=== PATIENT | female | born 1950 | race Caucasian/White ===

== ENCOUNTER 2020-06-16 10:45 | Inpatient (IN) | payer OTHER, MEDICARE ==
[~2020-06-16] VITALS: Ht 165.1 cm; Wt 58.2 kg
[~2020-06-16 10:45] MED LIST: NO HOME MEDS; ONDA4TAB12 PO
[2020-06-16] MEDS ORDERED: ondansetron/PF 4mg/2ml inj IV ONE (14:00)
[2020-06-16] MEDS ORDERED: normal saline 1000ML IV soln IVB ONE (14:00)
[2020-06-16] MEDS ORDERED: CefTRIAXone 2gm/D5W 50ml BAG 50 ML IV ONE (14:15)
[2020-06-16 14:34] LABS: BASOPHILS # (AUTO) 0.1 X10'3 (0-0.2); BASOPHILS % (AUTO) 0.7 % (0-1); EOSINOPHILS % (AUTO) 0.3 % (0-6); HEMATOCRIT 30.8 % (35.0-45.0); HEMOGLOBIN 10.7 g/dl (12.0-16.0); LYMPHOCYTES # (AUTO) 1.4 X10'3 (1.1-4.8); LYMPHOCYTES % (AUTO) 11.4 % (21-51); MEAN CORPUSCULAR HGB CONC 34.8 g/dL (33.0-36.5); MEAN CORPUSCULAR VOLUME 103.4 FL (78-98); MEAN PLATELET VOLUME 7.3 FL (7.4-10.4); MONOCYTES # (AUTO) 1.1 X10'3 (0-0.9); MONOCYTES % (AUTO) 9.1 % (2-12); NEUTROPHILS # (AUTO) 9.6 X10'3 (1.8-7.7); NEUTROPHILS % (AUTO) 78.5 % (42-75); PLATELET COUNT 179 X10'3 (140-440); RED BLOOD COUNT 2.98 X10'6 (4.20-5.60); RED CELL DISTRIBUTION WIDTH 15.9 % (11.5-14.5); WHITE BLOOD COUNT 12.2 X10'3 (4.5-11.0)
[2020-06-16 14:50] LABS: ALANINE AMINOTRANSFERASE 59 U/L (12-78); ALBUMIN 2.7 G/DL (3.4-5.0); ALKALINE PHOSPHATASE 240 IU/L (46-116); ANION GAP 13 (8-16); BILIRUBIN,TOTAL 23.1 MG/DL (0.1-1.0); BLOOD UREA NITROGEN 12 MG/DL (7-18); ETHANOL < 0.010 GM/DL (0.0-0.010); LIPASE 215 U/L (73-393); SODIUM 128 MMOL/L (135-145); TOTAL CARBON DIOXIDE 29.4 MMOL/L (24-32)
--- NOTE | 2020-06-16 14:55 | NUR ---
BACK FROM CT
[2020-06-16 15:07] LABS: ALBUMIN/GLOBULIN RATIO 0.5 (1.1-1.5); BUN/CREATININE RATIO 16.2 (6.6-38.0); CREATININE 0.74 MG/DL (0.40-0.90); GLUCOSE 112 MG/DL (70-104); TOTAL PROTEIN 8.4 G/DL (6.4-8.2); eGFR 78 ML/MIN
[2020-06-16 15:22] LABS: ASPARTATE AMINO TRANSFERASE 168 U/L (10-37)
[2020-06-16 15:25] LABS: CHLORIDE 86 MMOL/L (99-107)
--- NOTE | 2020-06-16 15:27 | NUR ---
K 2.0. AWARE
[2020-06-16] MEDS ORDERED: potassium Cl 10 mEq/100mL bag IV ONE (15:30)
[2020-06-16] MEDS ORDERED: potassium Cl 40MEQ/1/2NS 520ml 520 ML IV PRN ×3 (15:35→19:05)
[2020-06-16] MEDS: potassium Cl 40MEQ/1/2NS 520ml 520 ML IV PRN (15:55)
--- NOTE | 2020-06-16 15:58 | NUR ---
patient in denial over disease process and current situation. patient denies being jaundice and how long. patient states that lab levels are abnormal due to stress, reports last drink monday and only has one drink, "hot tattie" on monday. patient reports she does not want to transfer at this time for further care and would rather stay here. patient has asked for her care not to be discussed with her . patient is able to verbalize what has been said to her by PA regarding prognosis. understands MELD score is high and chance of mortality is 30% within 90 days, continues to refuse to be transferred to specialist. is away taking care of animals but seems to understand severity of illness when discussed prior with patient. Dynamics appear to be had patient come for care against her will. Per patient has been jaundice for approximately 3-4 weeks.
--- NOTE | 2020-06-16 19:01 | NUR ---
verified iv compatibility of potassium and levaquin with genie gipson
[2020-06-16] MEDS: levoFLOXACIN-Levaquin 250mg/D5 50 ML IV SCH (19:05)
[2020-06-16] MEDS ORDERED: potassium Cl 20 mEq SR tablet PO PRN ×2 (19:05)
[2020-06-16] MEDS: normal saline 1000ml 1,000 ML IV SCH (19:05)
[2020-06-16] MEDS ORDERED: ondansetron/PF 4mg/2ml inj IV PRN (19:05)
[2020-06-16] MEDS ORDERED: magnesium 2GM in 50ml NS 50 ML IV PRN (19:05)
[2020-06-16] MEDS ORDERED: magnesium Cl slow-release 64mg tablet PO PRN (19:05)
--- NOTE | 2020-06-16 19:22 | NUR ---
pt reports feeling "very anxious and uncomfortable" with being here. pt states she is willing to stay but doesnt want to be here. given extra blankets as pt states shes cold. no other requests at this time. md acevedo present currently in room interviewing pt
[2020-06-16] MEDS: K and/or MAG REPLACEMENT MC SCH (20:00)
--- NOTE | 2020-06-16 20:07 | NUR ---
pt requesting room upstairs. updated pt that at this time there is no available room. pt is "in line" to get a room. pt verbalized understanding and states "I just want to go to my room. I hate being down here." is calm and appropriate with staff, "I'm just annoyed and anxious."
[2020-06-16 21:42] LABS: CLARITY,URINE CLOUDY (Clear); COLOR,URINE AMBER (Yellow); GLUCOSE, URINE 100 mg/dl (Neg); KETONES,URINE TRACE mg/dl (Neg); LEUKOCYTE ESTERASE ,URINE LARGE (Neg); NITRITES, URINE POSITIVE (Neg); OCCULT BLOOD,URINE TRACE-INTACT (Neg); PH,URINE 6.5 (4.8-8.0); PROTEIN,URINE 30 mg/dl (Neg)
[2020-06-16 21:43] LABS: URINE AMPHETAMINE SCREEN NEGATIVE (Neg); URINE BARBITUATE SCREEN NEGATIVE (Neg); URINE BENZODIAZEPINES SCREEN NEGATIVE (Neg); URINE CANNABINOID SCREEN NEGATIVE (Neg); URINE COCAINE SCREEN NEGATIVE (Neg); URINE METHADONE SCREEN NEGATIVE (Neg); URINE OPIATE SCREEN NEGATIVE (Neg); URINE PHENCYCLIDINE SCREEN NEGATIVE (Neg)
[2020-06-16 21:46] LABS: UA COLLECTION TYPE CLN CATCH MIDSTREAM
[2020-06-16 21:51] LABS: BACTERIA,URINE 3+ /HPF (Neg); RBC,URINE 0-2 /HPF (0-2); SQUAMOUS EPITHELIAL CELL,UR MODERATE /LPF (FEW); WBC,URINE 50-100 /HPF (0-4)
[2020-06-16 21:52] LABS: WBC CLUMPS,URINE MODERATE /HPF (NEGATIVE)
[2020-06-16 21:53] LABS: TRANSITIONAL EPI CELLS,URINE FEW /HPF
--- NOTE | 2020-06-16 22:55 | NUR ---
Patient in room ED 4. I have received report from SIMON Rawls and had the opportunity to ask questions and assume patient care.
[2020-06-16 23:00] VITALS: BP 133/74
[2020-06-17 02:00] VITALS: BP 110/68
[2020-06-17] MEDS: normal saline 1000ml 1,000 ML IV SCH ×2 (05:05→15:05)
[2020-06-17 06:00] VITALS: BP 108/70
--- NOTE | 2020-06-17 06:00 | NUR ---
Patient in room PCU 3023. I have received report from Haydee and had the opportunity to ask questions and assume patient care.
--- NOTE | 2020-06-17 06:15 | NUR ---
Patient in room PCU 3023. I have received report from Corrina and had the opportunity to ask questions and assume patient care.
--- NOTE | 2020-06-17 06:19 | NUR ---
Problems reprioritized. Patient report given, questions answered & plan of care reviewed with SIMON Quinn.
[2020-06-17 06:21] LABS: BASOPHILS % (AUTO) 0.3 % (0-1); EOSINOPHILS % (AUTO) 0.3 % (0-6); HEMATOCRIT 23.7 % (35.0-45.0); HEMOGLOBIN 8.3 g/dl (12.0-16.0); LYMPHOCYTES % (AUTO) 7.9 % (21-51); MEAN CORPUSCULAR HEMOGLOBIN 36.1 PG (27.0-31.0); MEAN CORPUSCULAR HGB CONC 35.1 g/dL (33.0-36.5); MEAN PLATELET VOLUME 7.3 FL (7.4-10.4); MONOCYTES # (AUTO) 1.2 X10'3 (0-0.9); NEUTROPHILS # (AUTO) 10.1 X10'3 (1.8-7.7); NEUTROPHILS % (AUTO) 81.5 % (42-75); PLATELET COUNT 164 X10'3 (140-440); RED CELL DISTRIBUTION WIDTH 15.6 % (11.5-14.5); WHITE BLOOD COUNT 12.4 X10'3 (4.5-11.0)
[2020-06-17 06:33] LABS: ALBUMIN 1.8 G/DL (3.4-5.0); ANION GAP 11 (8-16); BLOOD UREA NITROGEN 12 MG/DL (7-18); BUN/CREATININE RATIO 17.9 (6.6-38.0); CALCIUM 6.6 MG/DL (8.5-10.1); CHLORIDE 93 MMOL/L (99-107); CREATININE 0.67 MG/DL (0.40-0.90); SODIUM 129 MMOL/L (135-145); eGFR 88 ML/MIN
[2020-06-17 06:36] LABS: GLUCOSE 79 MG/DL (70-104)
[2020-06-17 06:37] LABS: POTASSIUM 2.6 MMOL/L (3.5-5.1)
[2020-06-17 06:38] LABS: MAGNESIUM 0.9 MG/DL (1.5-2.4)
--- NOTE | 2020-06-17 06:45 | NUR ---
promotional table spacer PAGER ID: [phone] MESSAGE: [email or web address] [id number], Isaura Sosa. Mag 0.9 & +K 2.6. Will replace per protocol
[2020-06-17] MEDS: levoFLOXACIN-Levaquin 250mg/D5 50 ML IV SCH (07:26)
[2020-06-17] MEDS: magnesium 4gm in 100ml NS 100 ML IV PRN (07:27)
[2020-06-17] MEDS: K and/or MAG REPLACEMENT MC SCH ×2 (07:28→20:00)
[2020-06-17] MEDS: potassium Cl 40MEQ/1/2NS 520ml 520 ML IV PRN ×2 (10:51→23:42)
[2020-06-17 11:00] VITALS: BP 117/63
[2020-06-17 15:00] VITALS: BP 124/76
[2020-06-17 16:56] LABS: ALANINE AMINOTRANSFERASE 46 U/L (12-78); ALBUMIN 2.1 G/DL (3.4-5.0); ALKALINE PHOSPHATASE 182 IU/L (46-116); BILIRUBIN,TOTAL 19.3 MG/DL (0.1-1.0)
[2020-06-17 17:25] LABS: ASPARTATE AMINO TRANSFERASE 131 U/L (10-37)
[2020-06-17 17:27] LABS: TOTAL PROTEIN 6.3 G/DL (6.4-8.2)
[2020-06-17 17:29] LABS: ALBUMIN/GLOBULIN RATIO 0.5 (1.1-1.5); BILIRUBIN,DIRECT 17.2 MG/DL (0-0.3)
[2020-06-17 18:00] VITALS: BP 128/81
[2020-06-17] MEDS: lactobacillus rhamnosus 10,000 MMU CELLS/CAPSULE PO SCH (20:50)
--- NOTE | 2020-06-17 20:55 | NUR ---
patient has a potassium level of 2.6, replacement is ongoing as she has an IV bag of potassium infusing at the moment.
[2020-06-17 22:00] VITALS: BP_SYST 117; BP_SYST 118; BP_DIAS 80; BP_DIAS 98
[2020-06-17 22:18] LABS: MAGNESIUM 1.9 MG/DL (1.5-2.4)
[2020-06-17 22:19] LABS: POTASSIUM 3.2 MMOL/L (3.5-5.1)
[2020-06-18] MEDS: normal saline 1000ml 1,000 ML IV SCH ×3 (01:05→21:05)
[2020-06-18 02:00] VITALS: BP 101/61
[2020-06-18 06:00] VITALS: BP 123/77
--- NOTE | 2020-06-18 06:10 | NUR ---
report given to and discussed with SIMON Quinn
[2020-06-18 06:20] LABS: BASOPHILS % (AUTO) 0.2 % (0-1); EOSINOPHILS % (AUTO) 0.4 % (0-6); HEMATOCRIT 25.2 % (35.0-45.0); HEMOGLOBIN 8.9 g/dl (12.0-16.0); LYMPHOCYTES % (AUTO) 8.5 % (21-51); MEAN CORPUSCULAR HEMOGLOBIN 36.2 PG (27.0-31.0); MEAN CORPUSCULAR HGB CONC 35.2 g/dL (33.0-36.5); MEAN CORPUSCULAR VOLUME 102.9 FL (78-98); MEAN PLATELET VOLUME 7.3 FL (7.4-10.4); MONOCYTES # (AUTO) 1.2 X10'3 (0-0.9); MONOCYTES % (AUTO) 10.5 % (2-12); NEUTROPHILS # (AUTO) 9.1 X10'3 (1.8-7.7); NEUTROPHILS % (AUTO) 80.4 % (42-75); PLATELET COUNT 196 X10'3 (140-440); RED BLOOD COUNT 2.45 X10'6 (4.20-5.60); RED CELL DISTRIBUTION WIDTH 15.9 % (11.5-14.5); WHITE BLOOD COUNT 11.4 X10'3 (4.5-11.0)
[2020-06-18 06:35] LABS: ANION GAP 11 (8-16); BLOOD UREA NITROGEN 10 MG/DL (7-18); BUN/CREATININE RATIO 15.2 (6.6-38.0); CALCIUM 6.8 MG/DL (8.5-10.1); CHLORIDE 94 MMOL/L (99-107); CREATININE 0.66 MG/DL (0.40-0.90); MAGNESIUM 1.8 MG/DL (1.5-2.4); SODIUM 128 MMOL/L (135-145); TOTAL CARBON DIOXIDE 22.9 MMOL/L (24-32); eGFR 89 ML/MIN
[2020-06-18 06:40] LABS: GLUCOSE 109 MG/DL (70-104); POTASSIUM 3.2 MMOL/L (3.5-5.1)
[2020-06-18] MEDS ORDERED: POTASSIUM BICARB 20meq eff tab 20 MEQ TABLET.EFF PO PRN (07:50)
[2020-06-18] MEDS: levoFLOXACIN-Levaquin 250mg/D5 50 ML IV SCH (08:14)
[2020-06-18] MEDS: K and/or MAG REPLACEMENT MC SCH ×2 (08:15→20:00)
[2020-06-18] MEDS: lactobacillus rhamnosus 10,000 MMU CELLS/CAPSULE PO SCH ×2 (08:15→20:52)
[2020-06-18] MEDS: POTASSIUM BICARB 20meq eff tab 20 MEQ TABLET.EFF PO PRN (08:15)
[2020-06-18 09:57] LABS: ALANINE AMINOTRANSFERASE 46 U/L (12-78); ALKALINE PHOSPHATASE 177 IU/L (46-116); BILIRUBIN,TOTAL 19.9 MG/DL (0.1-1.0)
[2020-06-18 10:29] LABS: ASPARTATE AMINO TRANSFERASE 123 U/L (10-37)
[2020-06-18 10:32] LABS: ALBUMIN/GLOBULIN RATIO 0.5 (1.1-1.5); BILIRUBIN,DIRECT 17.1 MG/DL (0-0.3); TOTAL PROTEIN 6.3 G/DL (6.4-8.2)
[2020-06-18 11:00] VITALS: BP 133/83
[2020-06-18 11:57] LABS: PARTIAL THROMBOPLASTIN TIME 31 SECONDS (22-32)
[2020-06-18 15:00] VITALS: BP 120/76
--- NOTE | 2020-06-18 15:33 | NUR ---
PAGER ID: [phone] MESSAGE: room 3023A, Sheila Barajas, requesting Ativan for MRCP. States she needs anxiety medication.
[2020-06-18] MEDS ORDERED: LORazepam 2 mg/ml vial IV ONE (15:35)
[2020-06-18 18:00] VITALS: BP 144/88
--- NOTE | 2020-06-18 18:21 | NUR ---
report received and discussed with SIMON Quinn.
--- NOTE | 2020-06-18 19:24 | NUR ---
patient is sitting up in bed and eating, she said she is tired and would like to sleep early.
--- NOTE | 2020-06-18 19:44 | NUR ---
initial dietary documentation was a mistake.
[2020-06-18 22:00] VITALS: BP 107/69
[2020-06-18 22:09] LABS: POTASSIUM 3.5 MMOL/L (3.5-5.1)
[2020-06-19 02:00] VITALS: BP 130/79
--- NOTE | 2020-06-19 06:16 | NUR ---
report given to and discussed with SIMON Galvan.
[2020-06-19 06:48] LABS: BASOPHILS % (AUTO) 0.4 % (0-1); EOSINOPHILS # (AUTO) 0.1 X10'3 (0-0.9); EOSINOPHILS % (AUTO) 0.6 % (0-6); HEMATOCRIT 23.6 % (35.0-45.0); HEMOGLOBIN 8.3 g/dl (12.0-16.0); LYMPHOCYTES # (AUTO) 1.1 X10'3 (1.1-4.8); LYMPHOCYTES % (AUTO) 11.5 % (21-51); MEAN CORPUSCULAR HEMOGLOBIN 36.2 PG (27.0-31.0); MEAN CORPUSCULAR HGB CONC 35.1 g/dL (33.0-36.5); MEAN CORPUSCULAR VOLUME 102.9 FL (78-98); MEAN PLATELET VOLUME 7.2 FL (7.4-10.4); MONOCYTES % (AUTO) 10.6 % (2-12); NEUTROPHILS % (AUTO) 76.9 % (42-75); PLATELET COUNT 189 X10'3 (140-440); RED BLOOD COUNT 2.29 X10'6 (4.20-5.60); RED CELL DISTRIBUTION WIDTH 15.5 % (11.5-14.5); WHITE BLOOD COUNT 9.2 X10'3 (4.5-11.0)
[2020-06-19 06:56] VITALS: BP 123/78
[2020-06-19 07:14] LABS: ALBUMIN 1.9 G/DL (3.4-5.0); ANION GAP 12 (8-16); BLOOD UREA NITROGEN 10 MG/DL (7-18); CALCIUM 6.7 MG/DL (8.5-10.1); CHLORIDE 98 MMOL/L (99-107); MAGNESIUM 1.4 MG/DL (1.5-2.4); SODIUM 132 MMOL/L (135-145); TOTAL CARBON DIOXIDE 22.4 MMOL/L (24-32)
[2020-06-19 07:17] LABS: BUN/CREATININE RATIO 13.3 (6.6-38.0); CREATININE 0.75 MG/DL (0.40-0.90); GLUCOSE 100 MG/DL (70-104); POTASSIUM 3.3 MMOL/L (3.5-5.1); eGFR 77 ML/MIN
[2020-06-19] MEDS: K and/or MAG REPLACEMENT MC SCH (08:00)
[2020-06-19] MEDS: lactobacillus rhamnosus 10,000 MMU CELLS/CAPSULE PO SCH (08:02)
[2020-06-19] MEDS: POTASSIUM BICARB 20meq eff tab 20 MEQ TABLET.EFF PO PRN (08:02)
[2020-06-19] MEDS: normal saline 1000ml 1,000 ML IV SCH (08:03)
[2020-06-19] MEDS: magnesium 4gm in 100ml NS 100 ML IV PRN (09:53)
[2020-06-19] MEDS ORDERED: FOLI0.4T6 PO (09:54)
[2020-06-19] MEDS ORDERED: PANT40TA54 PO (09:54)
[2020-06-19] MEDS ORDERED: MULT-1085 PO (09:54)
[2020-06-19] MEDS ORDERED: THIA100T70 PO (09:54)
[2020-06-19] MEDS ORDERED: POTA20TA10 PO (09:55)
[2020-06-19] MEDS ORDERED: MAGN500C16 PO (09:55)
[2020-06-19 10:45] LABS: ALANINE AMINOTRANSFERASE 47 U/L (12-78); ALKALINE PHOSPHATASE 196 IU/L (46-116); BILIRUBIN,TOTAL 19.7 MG/DL (0.1-1.0)
[2020-06-19 10:46] LABS: ALBUMIN/GLOBULIN RATIO 0.5 (1.1-1.5); ASPARTATE AMINO TRANSFERASE 129 U/L (10-37); BILIRUBIN,DIRECT 15.7 MG/DL (0-0.3); TOTAL PROTEIN 6.3 G/DL (6.4-8.2)
[2020-06-19] MEDS ORDERED: levoFLOXACIN 250mg tablet PO SCH (11:00)
[2020-06-19 11:37] VITALS: BP 123/91
[2020-06-20 07:17] LABS: HEPATITIS C ANTIBODY <0.1 s/co ratio (0.0-0.9)
== END 2020-06-19 12:03 | disposition home or self-care (01) | DRG 433 ==
LOC: ER 10:46 → ED HOLD 19:03 → PCU 3S 22:50
PROVIDERS: ADMIT Internal Medicine; ATTEND Internal Medicine
DX: K70.31 Alcoholic cirrhosis of liver with ascites (principal); N39.0 Urinary tract infection, site not specified; E87.1 Hypo-osmolality and hyponatremia; K70.11 Alcoholic hepatitis with ascites; Z20.822 Contact with and (suspected) exposure to COVID-19; E87.6 Hypokalemia; K72.90 Hepatic failure, unspecified without coma; R32 Unspecified urinary incontinence; D64.9 Anemia, unspecified; F10.20 Alcohol dependence, uncomplicated; Z91.19 Patient's noncompliance with other medical treatment and regimen
CPT/HCPCS: 36415; 74176; 74181; 80048; 80053; 80076; 80305; 80320; 81001; 82140; 82390; 82728; 83605; 83690; 83735; 84132; 84145; 85025; 85610; 85730; 86705; 86706; 86803; 87040; 87081; 87088; 87635; 93005; 96365; 96366; 96367; 96375; 97110; 97161; 97530; 97535; 99285; C9803; G0378; J0696; J1956; J2060; J2405; J3475; J3480; J7030